=== PATIENT | female | born 1930 | race Caucasian/White ===

== ENCOUNTER → 2017-03-20 | Outpatient (CLI) | payer OTHER, MEDICAID | END | disposition home or self-care (01) | LOC: US 15:29 | PROC: B54DZZZ Ultrasonography of Bilateral Lower Extremity Veins (ICD-10-PCS; principal; 2017-03-20) | PROC: B44HZZZ Ultrasonography of Bilateral Lower Extremity Arteries (ICD-10-PCS; 2017-03-20) | DX: E11.9 Type 2 diabetes mellitus without complications (principal) ==

== ENCOUNTER 2018-10-16 19:34 | Inpatient (IN) | payer OTHER, MEDICAID ==
[~2018-10-16] VITALS: Ht 152.4 cm; Wt 91.3 kg
[2018-10-16 20:10] LABS: BASOPHIL % 0.5 % (0-2); PLATELET COUNT 332 x10^3mcL (130-400); RED CELL DISTRIBUTION WIDTH 13.6 % (11.5-14.5)
[2018-10-16 20:13] LABS: CALCIUM 8.2 mg/dL (8.5-10.1); CARBON DIOXIDE 20.3 mmol/L (21-32); CHLORIDE SERUM 101 mmol/L (98-107); GLUCOSE SERUM 285 mg/dL (74-106); POTASSIUM SERUM 4.5 mmol/L (3.5-5.1); SODIUM SERUM 137 mmol/L (136-145)
--- NOTE | 2018-10-16 20:16 | NUR ---
PT BROUGHT IN BY DAUGHTERS C/O OF POOR APPETITE, N/V AND CONSTIPATION, PT IS AAO X 3 WITH PERIODS OF FORGETFUL, VERBALLY RESPONSIVE, YAKUT SPKEAING, ABD SOFT AND ROUND WITH ACTIVE BS, C/O OF LAST BM WAS 3 DAYS AGO AND WITH C/O OF N&V SINCE THIS MORNING, GENERALIZED WEAKNESS, BASELINE WALKER OR CANE AT HOME, PT WAS ABLE TO AMBULATE FEW STEPS FROM WC TO GURNEY WITHOUT ANY INCIDENT, IV TO RFA 20G, ZOFRAN AND TORADOL GIVEN PER MD ORDER, MSE DONE BY .
[2018-10-16 20:17] LABS: ALKALINE PHOSPHATASE 130 U/L (46-116); ALT/SGPT 273 U/L (14-59); AMYLASE 45 U/L (25-115); AST/SGOT 110 U/L (15-37); LIPASE 248 IU/L (73-393); TOTAL PROTEIN, SERUM 7.8 g/dL (6.4-8.2)
[2018-10-16 20:19] LABS: ALBUMIN 3.1 g/dL (3.4-5.0)
--- NOTE | 2018-10-16 20:38 | NUR ---
PT TO CT ABD/PELVIS VIA GURNEY. FAMILY REMAINS AT BEDSIDE WITH PT.
--- NOTE | 2018-10-16 21:29 | NUR ---
PT RESTING IN BED AND APPEARS COMFORTABLE, NO C/O OF PAIN OR DISCOMFORT AT THIS TIME.
--- NOTE | 2018-10-16 21:53 | NUR ---
PT DENIES ANY URGENCY TO VOID AT THIS TIME, MADE AWARE THAT URINE DIP IS NOT DONE, PER OKAY TO WAIT AT THIS TIME.
--- NOTE | 2018-10-16 22:05 | NUR ---
AT BEDSIDE AND DISCUSSED THE POC.
[2018-10-16] MEDS ORDERED: LIPI20 PO (22:16)
[2018-10-16] MEDS ORDERED: VITAMIN D32000 I2 PO (22:16)
[2018-10-16] MEDS ORDERED: GLU850 PO (22:16)
[2018-10-16] MEDS ORDERED: GOOD SENSE ASPI81 M3 PO (22:17)
[2018-10-16] MEDS ORDERED: AMLODIPINE BESY PO (22:17)
[2018-10-16] MEDS ORDERED: JANUVIA100 M1 PO (22:18)
--- NOTE | 2018-10-16 22:23 | NUR ---
ZOSYN INFUSING AT THIS TIME.
--- NOTE | 2018-10-16 22:52 | NUR ---
REPORT GIVEN TO JUNIOR, ALL QUESTIONS ANSWERED AND CONCERNS ADDRESSED.
--- NOTE | 2018-10-16 22:55 | NUR ---
MADE AWARE OF LACTID ACID 2.6, PER DR EMILY SERRATO TO SEND PT TO [facility].
--- NOTE | 2018-10-16 23:08 | NUR ---
RECEIVED PT FROM ED VIA [facility], CAME IN DUE TO ADBOMINAL PAIN/NAUSEA/VOMITING AND POOR APPETITE X4 DAYS. AAOX3. C/O MILD DIZZINESS. ABLE TO FOLLOW COMMANDS. NO SOB NOTED, LUNG SOUNDS CTA. DENIES CHEST PAIN/PRESSURE, C/O 8/10 EPIGASTRIC PAIN, PT STATED THAT PAIN IS TOLERABLE AT THIS TIME. DENIES NAUSEA/VOMITING. LAST BM WAS YESTERDAY, FORMED STOOLS. VOIDS. CANE AT BEDSIDE. W/ ECCHYMOSIS ON THE LEFT HAND. SIDE RAILS UPX2. CALL LIGHT ON REACH. PT'S DAUGHTER AT BEDSIDE. ENDORSED TO PRIMARY NURSE TIANA FOR CONTINUITY OF CARE
[2018-10-16 23:20] VITALS: BP 146/76
[2018-10-16 23:23] VITALS: Ht 152.4 cm; Wt 91.3 kg
--- NOTE | 2018-10-17 01:27 | NUR ---
PT AWAKE LAYING DOWN IN BED. ASSISSTED PT TO RESTROOM AND BACK TO BED. NO ACUTE DISTRES NOTED. BED AT LOWEST SETTING. SIDE RAILS X2 UP. CALL LIGHT WITHING REACH. WILL CONTINUE TO MONITOR.
--- NOTE | 2018-10-17 02:00 | NUR ---
DR CORONADO MADE AWARE OF PT LACTIC ACID OF 2.6. NO NEW ORDERS RECEIVED. WILL CONTINUE TO MONITOR.
[2018-10-17 05:40] VITALS: BP 139/65
--- NOTE | 2018-10-17 06:20 | NUR ---
PT STAYED AWAKE MOST OF THE NIGHT. BREATHING EVEN AND UNLABORED ON RA. NO ACUTE DISTRESS NOTED. ALL NEEDS ASSESSED AND ATTENDED TO. BED AT LOWEST SETTING. SIDE RAILS X2 UP. CALL LIGHT WITHING REACH. WILL ENDORSE CARE TO AM NURSE.
--- NOTE | 2018-10-17 08:02 | NUR ---
A+OX4, NO RESPRIATORY DISTRESS NOTED, DENIES PAIN, MEDSURG, PULSES MODERATE AND EQUAL HILARIO, NO EDEMA NOTED, LUNG SOUNDS CTA, TOELRATING RA, BOWEL SOUNDS ACTIVE, VOIDING FREELY, GENERALIZED WEAKNESS, L HAND ECCHYMOSIS, IV IN RFA WITH D5NS @ 80 ML/HR, SITE WNL.
[2018-10-17 08:46] LABS: BASOPHIL % 0.5 % (0-2); PLATELET COUNT 302 x10^3mcL (130-400); RED CELL DISTRIBUTION WIDTH 13.4 % (11.5-14.5)
[2018-10-17 08:56] LABS: ALKALINE PHOSPHATASE 110 U/L (46-116); ALT/SGPT 198 U/L (14-59); AST/SGOT 69 U/L (15-37); BILIRUBIN TOTAL 1.19 mg/dL (0.20-1.00); CALCIUM 7.4 mg/dL (8.5-10.1); CARBON DIOXIDE 24.1 mmol/L (21-32); CHLORIDE SERUM 103 mmol/L (98-107); CREATININE SERUM 1.6 mg/dL (0.6-1.0); GLUCOSE SERUM 267 mg/dL (74-106); POTASSIUM SERUM 4.7 mmol/L (3.5-5.1); SODIUM SERUM 137 mmol/L (136-145); TOTAL PROTEIN, SERUM 6.6 g/dL (6.4-8.2)
[2018-10-17 08:58] LABS: ALBUMIN 2.6 g/dL (3.4-5.0)
[2018-10-17 09:24] VITALS: BP 168/78
--- NOTE | 2018-10-17 09:58 | NUR ---
PT RESTING IN BED, NO RESPIRATORY DISTRESS NOTED, DENIES PAIN, CALL LIGHT WITHIN REACH.
--- NOTE | 2018-10-17 10:07 | NUR ---
PT RESTING IN BED, NO RESPIRATORY DISTRESS NOTED, COMPLAINING OF PAIN IN R ARM, R ARM SWOLLEN AND RED AT IV SITE, IV IN RFA REMOVED WITH CATHETER INTACT. R ARM ELEVATED ON PILLOW AND WRAPPED IN WARM BLANKET. STUDENT NURSE AND PROFESSOR TO ATTEMPT IV ACCESS.
--- NOTE | 2018-10-17 10:27 | NUR ---
DR MARIE AT BEDSIDE TO ASSESS PT AND EXPLAIN NEED FOR GALLSTONE REMOVAL SURGERY. PT REFUSED.
--- NOTE | 2018-10-17 10:38 | NUR ---
DR CORONADO NOTIFIED THAT PT REFUSED GALLSTONE SX AND THAT DR MARIE RECOMMENDING ADDITIONAL SURGICAL CONSULT.
--- NOTE | 2018-10-17 10:39 | NUR ---
CALLED AND SPOKE TO AND MADE SAADIA ACOSTA OF 'S RECOMMENDATION OF SURGICAL CONSULT. NEW ORDER RECEIVED OF CONSULT . NARAYAN RN ASSIGNED TO THIS PT MADE AWARE OF ABOVE.
--- NOTE | 2018-10-17 11:00 | NUR ---
NEW IV PLACED BY STUDENT RN AND PROFESSOR IN LFA, BLOOD RETURN PRESENT, FLUSHING WELL.
--- NOTE | 2018-10-17 12:27 | NUR ---
PT RESTING IN BED, NO RESPRIATORY DISTRESS NOTED, DENIES ABD PAIN, DENIES NAUSEA, CALL LIGHT WITHIN REACH.
--- NOTE | 2018-10-17 13:51 | NUR ---
PT RESTING IN BED, NO RESPIRATORY DISTRESS NOTED, DENIES PAIN, DENIES NAUSEA,FAMILY AT BEDSIDE, CALL LIGHT WITHIN REACH.
--- NOTE | 2018-10-17 16:39 | NUR ---
CALLED AND SPOKE TO (SURG CONSULT) TO FOLLOW UP WITH CONSULT PER . GAVE UPDATE OF PT STATUS. NEW ORDER RECEIVED FROM , US GALLBLADDER STAT, PT/PTT AND TYPE&SCREEN STAT. MAY START PT ON CLEAR LIQD DIET SOON ULTRASOUND IS DONE THEN NPO POST MN PER ORDER. NARAYAN ZUNIGA ASSIGNED TO THIS PT MADE AWARE OF ABOVE.
--- NOTE | 2018-10-17 16:54 | NUR ---
DAUGHTER AT BEDSIDE SPOKE TO PT, PT NOW AGREEABLE TO SURGERY. DR CHINCHILLA CALLED BY YARITZA MALLORY AND NOTIFIED. DAUGHTER STATES SHE WILL STAY WITH PT UNTIL DR CHINCHILLA SEES HER @ 9PM.PER DR CHINCHILLA, OKAY FOR PT TO HAVE CLEAR LIQUID DIET AFTER US GALLBLADDER. CALL LIGHT WITHIN REACH.
[2018-10-17 17:23] VITALS: BP 138/84
--- NOTE | 2018-10-17 18:27 | NUR ---
PT SITTING UP IN BED, NO RESPIRATORY DISTRESS NOTED, DENIES PAIN, DENIES NAUSEA, FAMILY ASSISTING PT WITH DINNER, CALL LIGHT WITHIN REACH.
--- NOTE | 2018-10-17 19:21 | NUR ---
ENDORSED CARE TO ASHLEE ZUNIGA.
--- NOTE | 2018-10-17 19:30 | NUR ---
RECEIVED PT FROM AM NURSE. PT AOOX4, ABLE TO MAKE NEEDS KNOWN. PT IS MED-SURG, DENIES CP/PRESSURE AT THIS TIME. PALPABLE PULSES TO ALL EXTREMETIES. SWELLING TO RUE NOTED. LUNG SOUNDS CTA. BREATHING EVEN AND UNLABORED ON RA. NO ACUTE DISTREES NOTED. ABD SOFT AND NONDISTEDED, MILD TENDERNESS TO PALPATION. ACTIVE BS X4 QUAD, LAST BM 10/15. VOIDS FREELY BRP. GENERALIZED WEAKNESS. AMBULATORY WITH ASSIST. ECHYMOSIS TO LEFT HAND, MACARENA. IV TO LFA RUNNING D5 NS AT 80ML/HR. SITE FREE FROM REDNESS AND SWELLING. BED AT LOWEST SETTING. SIDE RAILS X2 UP. CALL LIGHT WITHING REACH. WILL CONTINUE TO MONITOR.
[2018-10-17 20:28] VITALS: BP 125/52
--- NOTE | 2018-10-17 20:36 | NUR ---
DR RODRÍGUEZ CAME TO TALK WITH PATIENT REGARDING SX TO REMOVE GALLBLADDER. EXPLAINED PROCEDURE, PT STATES UNDERSTANDING AND HAS NO QUESTION. PT AGREES TO HAVE THE PROCEDURE DONE TOMORROW. CONSENT WAS SIGNED BY PATIENT IN THE ROOM, , RN AND PT DAUGHTER AT BEDSIDE. WILL CONTINUE TO MONITOR.
--- NOTE | 2018-10-17 21:10 | NUR ---
PT REQUESTING GRETAIEN, STATES SHE HAS HAD NO SLEEP SINCE YESTERDAY AND WANTS TO REST. MEDICATED WITH AMBIEN PRN PER MAR. NO ACUTE DISTRESS NOTED. WILL CONTINUE TO MONITOR.
[2018-10-18 01:01] LABS: microscopic required? NO
[2018-10-18 01:12] LABS: urine erythrocyte NEGATIVE (NEGATIVE)
[2018-10-18 06:07] VITALS: BP 134/64
--- NOTE | 2018-10-18 06:13 | NUR ---
PER DR GARCIA SX WILL BE CANCELLED TODAY. SX WILL BE RESCHEDULE FOR TOMORROW. WILL PUT PT ON LOW FAT DIET AND NPO AFTER MID NIGHT.
--- NOTE | 2018-10-18 06:54 | NUR ---
PT SLEPT AT INTERVALS THROGHOUT THE NIGHT. BREATHING EVEN AND UNLABORED ON RA. INSULIN GIVEN PER SLIDING SCALE. PT MADE AWARE OF CANCELATION OF SX, STATES UNDERSTANDING AND HAS NO QUESTIONS. NO ACUTE DISTRESS NOTED. NO SIGNIFICANT CHANGES DURING SHIFT. ALL NEEDS ASSESSED AND ATTENDED TO. IV TO LFA PATENT AND INTACT. SITE WNL. BED AT LOWEST SETTING. SIDE RAILS X2 UP. CALL LIGHT WITHING REACH. WILL ENDORSE CARE TO AM NURSE.
--- NOTE | 2018-10-18 08:00 | NUR ---
SHIFT ASSESSMENT DONE. PATIENT S/S/OX4. DIVEHI SPEAKING. C/O UPPER ABD PAIN ON 07/15. NORCO WOULD BE GIVEN. OBESITY. AMBULATORY. IVF OF D5NS 80CC/HR. IV SITE TO R HAND INTACT. POOR APPETITE. CALL LIGHT IN REACH.
[2018-10-18 08:47] VITALS: BP 145/67
--- NOTE | 2018-10-18 13:15 | NUR ---
RECEIVED PT FROM EFRAIN NIX. PT IS AAOX4. DENIES PAIN AND SOB AT THIS TIME. IV SITE PATENT AND INTACT. PT NPO AT THIS TIME FOR HIDA SCAN. SIDE RAILS UPX2. CALL LIGHT ON REACH. WILL CONT TO MONITOR.
--- NOTE | 2018-10-18 13:30 | NUR ---
SLEEPING NOW. NO S/S OF PAIN N OW. IVF CONTINUE.ENDORSED CARE TO EFRAIN BRICEÑO.
--- NOTE | 2018-10-18 14:37 | NUR ---
SPOKE TO NUCLEAR MED ABOUT PT'S HIDA SCAN, THE TECH WILL BE COMING IN AT AROUND 1630H-1700H, PT AND PT'S FAMILY MADE AWARE. PT REMAINED TO BE NPO
--- NOTE | 2018-10-18 14:39 | NUR ---
Initial Nutrition Assessment: Anali De Santiago [place] Rm 223A Dx: Choledocholithiasis PMHx: Diabetes, HTN, Chronic Renal Insuff. PSHx: None Labs: Glucos. 267H, BUN 30.0H, Creat. 1.6H, Alb. 2.6L, Ca 7.4L, AST 69H, ALT 198H, Hgb 11.2L, Hct. 34L Meds: Ativan, Humulin, Levaquin, Norvasc Diet: Low fat diet Spoke with EFRAIN Martinez and states was recently changed to NPO pending procedure) PO intake since admission: None documented Ht: 152.4cm, 60in Wt: 91.257kg, 200# BMI: 39.3kg/m2 (Obese I/II) Bed scale: Pt was not sitting in bed IBW: 100#, 45kg %IBW: 200% UBW: 260# Age: 88/F Food Allergies: NKFA Skin:Intact Raffaele: 20 Edema: None GI: Last BM: 10/18/18 PER H&P: 88 yo female h/o dm dyslipidemia ckd presented to the ed with abd pain. this started during the day and progressively worsen throughout the day. she was seen and evluated at the ed, abd u/s revealed gallstones, possible cholecystitis, pancreatidase and cbd stones. she was satrted on an iv antibiotics and was transffered to med surg. RD Note (10/18/18): Pt did not want to talk about diabetes education. Discussed eating low fat foods and nonprocessed foods. Discussed making her own foods at home and eating small portions of food. Went over eating 6 small meals a day. Pt states she is tolerating the low fat diet well here at the hospital. Problem with: N: No V: No D: No C: Yes Problems with: Chewing: None Swallowing: None Current appetite: Fair Recent wt change: None %wt change: None Vitamin/Supplement use: None Special diet at home: Regular Physical activity: None Nutrition education given (specify specific nutrition education and handout given): No handout given. Discussed eating low fat and non greasy foods. Food-drug interactions: Levaquin and : do not take w/minerals due to affecting the absorption, Ativan: limit caffeine to 400-500mg/day. Education given: Yes Estimated Nutritional Needs Based on adjusted body weight (56kg) Energy:9768-7710 kcal/day (25-30kcal/kg for maintenance ) Protein: 56-67g/day (1.0-1.2g/kg for lean body mass ) Fluid:3482-3307 mL/day (1 mL/kcal) or per Nutrition Diagnosis: 1. Inadequate oral intake r/t poor PO intake noted aeb npo needed for a procedure. Intervention 1. Education given on low fat diet. 2. Transition to low fat diet once tolerated Monitor/Evaluate Goal: PO intake at least 75% of estimated needs Monitor: PO intake, Labs, GI function MR F/U 10/21-10/23
--- NOTE | 2018-10-18 14:39 | NUR ---
Intervention 1. Education given on low fat diet. 2. Transition to low fat diet once tolerated
[2018-10-18 16:35] VITALS: BP 141/64
--- NOTE | 2018-10-18 17:03 | NUR ---
PT LTING IN BED, AAOX4. NO C/O PAIN AND SOB. IV SITE PATENT AND INTACT. NEEDS ARE ATTENDED. FAMILY AT BEDSIDE. SIDE RAILS UPX2. CALL LIGHT ON REACH. WILL CONT TO MONITOR
--- NOTE | 2018-10-18 17:59 | NUR ---
NUCLEAR MED TECH AT BEDSIDE FOR HIDA SCAN
--- NOTE | 2018-10-18 18:49 | NUR ---
PT LYING IN BED, AAOX4. NO C/O PAIN AND SOB. IV SITE PATENT AND INTACT. HIDA SCAN ONGOING. CALL LIGHT ON REACH. FAMILY AT BEDSIDE. ENDORSED TO CHARGE NURSE HUMBLE FOR CONTINUITY OF CARE
--- NOTE | 2018-10-18 20:00 | NUR ---
Awake and verbally responsive. No respiratory distress noted on room air. Denies pain. Denies n/v. Ambulating. HIDA scan completed. Pt.will be able to eat dinner. Family assisting pt.at this time. Will be npo after midnight for surgery tomorrow. Patient/family aware. Will cont.to monitor. Call light within reach.
[2018-10-18 20:54] VITALS: BP 153/71
--- NOTE | 2018-10-19 04:49 | NUR ---
Afebrile. No significant change in condition noted. Denies n/v. Denies pain at this time. NPO for planned surgery today. In no apparent distress.
[2018-10-19 05:55] LABS: BASOPHIL % 0.5 % (0-2); PLATELET COUNT 318 x10^3mcL (130-400); RED CELL DISTRIBUTION WIDTH 13.9 % (11.5-14.5)
[2018-10-19 05:59] VITALS: BP 158/71
[2018-10-19 06:24] LABS: CALCIUM 7.6 mg/dL (8.5-10.1); CARBON DIOXIDE 26.1 mmol/L (21-32); CHLORIDE SERUM 107 mmol/L (98-107); CREATININE SERUM 1.1 mg/dL (0.6-1.0); GLUCOSE SERUM 183 mg/dL (74-106); POTASSIUM SERUM 4.1 mmol/L (3.5-5.1); SODIUM SERUM 140 mmol/L (136-145)
--- NOTE | 2018-10-19 07:20 | NUR ---
RECEIVED PT. IN BED A/A/O X3. NO SOB, NO N/V NOTED. PT. DENIES ANY PAIN AT THIS TIME. D5NS RUNNING AT 80 CC/HR VIA IV SITE AT R FA. PT. IS NPO FOR PROCEDURE TODAY. FAMILY AT BEDSIDE. BED IN LOW POS., CALL LIGHT WITHIN REACH. SIDE RAILS UP X3.
[2018-10-19 08:07] VITALS: BP 140/55
--- NOTE | 2018-10-19 10:45 | NUR ---
PT. IS BEING TAKEN TO [facility]. FOR SURGERY.
--- NOTE | 2018-10-19 13:52 | NUR ---
RECEIVED PT. BACK IN ROOM FROM RECOVERY DEPT. ; PT. APPEARS DROWSY. B/P= 133/60 (84), P= 75, R.R.= 16, T= 97.9, O2 SAT.= 97% (WITH O2 AT 4L NC). ABD. INCISIONS WITH DERMABOND X 4 CDI. IV SITE NOTED TO R HAND. FAMILY AT BEDSIDE. WILL CONTINUE TO MONITOR.
[2018-10-19 14:26] VITALS: BP 133/60
[2018-10-19 17:08] VITALS: BP 128/62
--- NOTE | 2018-10-19 18:05 | NUR ---
REMAINS IN STABLE CONDITION AT THIS TIME. WILL CONTINUE TO MONITOR.
--- NOTE | 2018-10-19 18:31 | NUR ---
PT. VOIDED FREELY POST-OP.
--- NOTE | 2018-10-19 19:50 | NUR ---
RECEIVED PATIENT IN BED AWAKE, ALERT AND ORIENTED WITH NO SIGN OF DISTRESS. BREATHING EASY AND NONLABOR SATTING AT 98% RA. DENIES POST OPERATIVE PAIN AT THIS TIME, ABDOMINAL INCISION WITH DERMABOND X4 MACARENA, NO TRACED OF BLOOD NOTED. IV TO RH INTACT AND INFUSING WELL. WILL CONTINUE TO MONITOR. FAMILY MEMBERS AT BEDSIDE. CALL LIGHT WITHIN REACH.
[2018-10-19 21:45] VITALS: BP 136/63
--- NOTE | 2018-10-20 00:09 | NUR ---
ASSISTED TO BATHROOM AND VOIDED, NO C/O POST OP PAIN AT THIS TIME.
--- NOTE | 2018-10-20 03:02 | NUR ---
AWAKE C/O POST OP PAIN, NORCO 1 TAB PO GIVEN PRESCRIBED.
--- NOTE | 2018-10-20 04:01 | NUR ---
RELIEF NOTED PER PATIENT AFTER PAIN MEDS WAS GIVEN.
[2018-10-20 05:04] VITALS: BP 146/50
--- NOTE | 2018-10-20 05:10 | NUR ---
CHECKED AT INTERVALS FOR NEEDS AND SAFETY. C/O POST OPERATIVE PAIN X1 THR ENTIRE SHIFT AND MEDICATED PRESCRIBED. ALL NEEDS ATTENDED.
[2018-10-20 06:34] LABS: ALKALINE PHOSPHATASE 318 U/L (46-116); ALT/SGPT 225 U/L (14-59); AST/SGOT 277 U/L (15-37); BILIRUBIN TOTAL 2.4 mg/dL (0.20-1.00); CARBON DIOXIDE 21.3 mmol/L (21-32); CHLORIDE SERUM 107 mmol/L (98-107); CREATININE SERUM 1.4 mg/dL (0.6-1.0); GLUCOSE SERUM 269 mg/dL (74-106); POTASSIUM SERUM 4.1 mmol/L (3.5-5.1); SODIUM SERUM 139 mmol/L (136-145); TOTAL PROTEIN, SERUM 6.2 g/dL (6.4-8.2)
[2018-10-20 06:35] LABS: ALBUMIN 2.4 g/dL (3.4-5.0)
[2018-10-20 06:42] LABS: BASOPHIL % 0.1 % (0-2); PLATELET COUNT 357 x10^3mcL (130-400); RED CELL DISTRIBUTION WIDTH 13.6 % (11.5-14.5)
--- NOTE | 2018-10-20 07:20 | NUR ---
RECEIVED PT. IN BED SLEEPING. PT. CAN BE AROUSED EASILY. PT. IS ORIENTED X3. NO SOB, NO N/V NOTED. PT. DENIES ANY PAIN AT THIS TIME. D5NS RUNNING AT 80 CC/HR VIA IV SITE AT R HAND. SCD TO BLE MAINTAINED. BED IN LOW POS., CALL LIGHT WITHIN REACH. SIDE RAILS UP X3. FAMILY AT BEDSIDE. ENCOURAGED PT. TO BE UP AND OOB TO AMBULATE TOLERATED.
[2018-10-20 08:35] VITALS: BP 140/62
--- NOTE | 2018-10-20 09:00 | NUR ---
C/O FEELING NAUSEATED. ZOFRAN 4MG IV GIVEN.
[2018-10-20 17:10] VITALS: BP 121/62
--- NOTE | 2018-10-20 18:18 | NUR ---
PT. STATED SHE HAS BEEN PASSING GAS AND BURPING. PT. AMBULATING TO BATHROOM WITH ASSIST. WILL CONTINUE TO MONITOR.
--- NOTE | 2018-10-20 19:20 | NUR ---
RECEIVED PATIENT SITTING IN CHAIR EATING DINNER, FAMILY MEMBERS AT BEDSIDE. NO INDICATION OF POST OP PAIN NOTED THIS TIME. RESPIRATION EVEN AND NONLABOR SATTING AT 94% RA. SURGICAL INCISION TO ABDOMEN WITH DERMABOND X4 INTACT WITH NO TRACE BLOOD NOTED. IV TO RH INTACT AND INFUSING WELL. WILL CONTINUE TO MONITOR. CALL LIGHT WITHIN REACH.
[2018-10-20 21:24] VITALS: BP 140/65
--- NOTE | 2018-10-20 22:19 | NUR ---
IV TO RT HAND INFILTRATED, REINSERTED TO RT WRIST INTACT AND INFUSING WELL.
--- NOTE | 2018-10-20 22:50 | NUR ---
ASSISTED TO BATHROOM AND VOIDED, DENIES POST OP PAIN.
--- NOTE | 2018-10-21 02:15 | NUR ---
APPEAR TO BE SLEEPING THISM TIME NO INDICATION OF PAIN AND DISCOMFORT NOTED.
--- NOTE | 2018-10-21 04:48 | NUR ---
FOR CBC AND CMP TELEPHONE ORDERS FROM DR WILKERSON.
--- NOTE | 2018-10-21 05:05 | NUR ---
CHECKED AT INTERVALS FOR NEEDS AND COMFORT, INSTRUCTION ON NPO GIVEN AND PATIENT VERBALIZED UNDERSTANDING. ALL NEEDS ATTENDED.
[2018-10-21 05:16] VITALS: BP 129/60
[2018-10-21 06:29] LABS: PLATELET COUNT 344 x10^3mcL (130-400); RED CELL DISTRIBUTION WIDTH 13.8 % (11.5-14.5)
[2018-10-21 07:04] LABS: BILIRUBIN DIRECT 1.61 mg/dL (0.0-0.2); BILIRUBIN TOTAL 2.2 mg/dL (0.20-1.00)
[2018-10-21 07:05] LABS: ALBUMIN 2.2 g/dL (3.4-5.0)
--- NOTE | 2018-10-21 07:20 | NUR ---
RECEIVED PATIENT AWAKE/ALERT IN BED CALM AND PLEASANT, DENIES PAIN AT THIS TIME. NO N/V. INFORM PATIENT NOTHING BY MOUTH FOR TEST, PATIENT VERBALIZE UNDERSTAND. NEEDS MET. FAMILY MEMBER REMAIN AT BEDSIDE. CALL LIGHT IN REACH.
[2018-10-21 08:35] LABS: BAND NEUTROPHIL 0 % (0-10); BASOPHIL 0 % (0-2); MONOCYTE 1 % (0-7); SEGMENTED NEUTROPHILS 94 % (37-75)
[2018-10-21 08:36] LABS: ALKALINE PHOSPHATASE 257 U/L (46-116); ALT/SGPT 203 U/L (14-59); AST/SGOT 156 U/L (15-37); BILIRUBIN TOTAL 2.2 mg/dL (0.20-1.00); CALCIUM 7.8 mg/dL (8.5-10.1); CARBON DIOXIDE 19.1 mmol/L (21-32); CHLORIDE SERUM 108 mmol/L (98-107); CREATININE SERUM 1.3 mg/dL (0.6-1.0); GLUCOSE SERUM 166 mg/dL (74-106); SODIUM SERUM 140 mmol/L (136-145); rbc morphology (normal/abnorm) ABNORMAL (NORMAL)
[2018-10-21 08:37] LABS: PLATELET MORPHOLOGY PLATELETS INCREASED
[2018-10-21 08:40] LABS: ALBUMIN 2.2 g/dL (3.4-5.0)
[2018-10-21 09:02] VITALS: BP 130/57
--- NOTE | 2018-10-21 11:50 | NUR ---
PATIENT LAYING IN BED WITH HOB 35 DEGREE, ELAINA RN AT BEDSIDE GIVE PATIENT DM TEACHING. GAVE 4 UNITS REGULAR INSULIN SQ FOR BS 230. UPDATE FAMILY MEMBERS POC. LACTULOSE PO GIVEN. PATIENT REPORT NO PAIN. PASSING GAS, NO BM. NEEDS MET. CONT TO MONITOR.
--- NOTE | 2018-10-21 13:26 | NUR ---
PATIENT IN BED C/O /10 ABD PAIN, NORCO 1 TAB PO GIVEN. ASSISTING UP TO BATHRROM WITH DTR HELP, PATIENT PASSING GAS PAIN DUE TO GAS PAIN. INFORM PATIENT TECH WILL COME UP TO GET PATIENT FOR HIDA SCAN IN 20 MIN. FAMILY MEMBERS REMAIN AT BEDSIDE TO HELP PATIENT BACK TO BED.
--- NOTE | 2018-10-21 13:48 | NUR ---
PATIENT BACK FROM BATHROOM, ASSISTING TO WHEELCHAIR FOR PATIENT GO TO HIDA SCAN. IV HL. PATIENT OFF FLOOR WITH FAMILY MEMBERS FOR TRANSLATION.
--- NOTE | 2018-10-21 15:20 | NUR ---
PATIENT BACK FROM HIDA SCAN, SITTING UP AT SIDE OF BED WITH FAMILY MEMBERS WITH HER, NO PAIN AT THIS TIME. CONNECTED BACK ON IVF, CALL LIGHT WITHIN REACH.
--- NOTE | 2018-10-21 16:25 | NUR ---
CALL DR. MARIE NO ANSWER LEFT MESSAGE FOR DOCTOR TO CALL BACK.
--- NOTE | 2018-10-21 16:38 | NUR ---
PATIENT LAYING IN BED NO COMPLAIN AT THIS TIME, GAVE 2 UNITS REGULAR INSULIN SQ FOR BS 184. SENOKOT PO GIVEN. FAMILY MEMBERS REMAIN AT BEDSIDE, UPDATE WAITING FOR DR. MARIE TO CALL BACK FOR DIET.
--- NOTE | 2018-10-21 16:44 | NUR ---
[facility] HERE FOR PATIENT, IV TO LW REMOVED BY DANISH GUERRERO. CATHETER INTACT, NO S/S OF SWELLING OR INFECTION. GAUZES APPLIED NO BLEEDING NOTED. PATIENT WAITING FOR MOM TO BRING CLOTHES. CALL [facility] TO UPDATE ETA 5-6 PM WILL BE THERE 1-2HRS.
[2018-10-21 16:50] VITALS: BP 121/55
--- NOTE | 2018-10-21 17:42 | NUR ---
PATIENT SLEEPING AT THIS TIME, FAMILY MEMBERS REMAIN AT BEDSIDE. WILL BE BACK TO GIVE MEDS. CALL LIGHT WITHIN REACH.
--- NOTE | 2018-10-21 17:48 | NUR ---
DR. MARIE CALL REPORT HIDA SCAN IS NEGATIVE, NO BOWEL MOVEMENT YET. ORDER FULL LIQUID DIET AND NPO FOR BREAKFAST, LIVER PANEL FOR AM. MAG CITRATE 1 BOTTLE TONIGHT.
--- NOTE | 2018-10-21 18:17 | NUR ---
UPDATE PATIENT'S FAMILY MEMBERS DR. MARIE WILL SEE PATIENT IN THE MORNING AND DISCUSS POC AND INTERVENTION. FULL LIQUID DIET TRAY BROUGHT IN BY FNS SERVICE. PATIENT STILL SLEEPING. CONT TO MONITOR.
--- NOTE | 2018-10-21 19:30 | NUR ---
DR RODRÍGUEZ AT BEDSIDE AND EVAL PT, UPDATES GIVEN AND MD EXPLAINED THE POC WITH FAMILY AND PT.
--- NOTE | 2018-10-21 19:35 | NUR ---
PT SEEN, RESTING IN BED, ALERT AND ORIENTED X 3 WITH MEXICAN SPEAKING, DENIES HEADACHE OR DIZZINESS, BREATHING EVEN AND UNLABORED, LUNG SOUNDS CLEAR, ON ROOM AIR WITH NO RESP DISTRESS NOTED, MEDSURG PT, DENIES CHEST PAIN, PULSES PALPABLE, NO EDEMA NOTED, FULL LIQUID DIET AT THIS TIME, GENERALIZED WEAKNESS, OOB WITH WALKER, ABD DISTENDED BUT SOFT WITH ACTIVE BS, (+) FLATUS AFTER SURGERY BUT NO BM, VOIDING FREELY, 4 INCISIONS LAP SITE TO ABD, KEMALABEBER AND MACARENA, FAMILY AT BEDSIDE, NO DISTRESS NOTED, WILL KEEP TO MONITOR.
--- NOTE | 2018-10-21 20:37 | NUR ---
PT HAD ONE SMALL BROWNISH WATERY STOOL, GOOD ROHINI CARE GIVEN.
[2018-10-21 22:02] VITALS: BP 118/57
[2018-10-22 06:03] VITALS: BP 103/70
--- NOTE | 2018-10-22 06:16 | NUR ---
PT ASLEEP BUT EASILY AROUSABLE, SLEPT ON AND OFF WHOLE NIGHT, NPO AFTER MIDNIGHT, PT HAD TOTAL OF 3 BM THROUGHOUT THE NIGHT, MORNING BLOOD SUGAR-158 MG/DL WITH RISS 3 UNITS, NO DISTRESS NOTED, WILL KEEP TO MONITOR.
--- NOTE | 2018-10-22 07:09 | NUR ---
REPORT GIVEN TO GIORGI-RN, ALL QUESTIONS ANSWERED AND CONCERNS ADDRESSED.
--- NOTE | 2018-10-22 07:15 | NUR ---
RECEIVED PATIENT ASLEEP AWAKEN EASILY, NO C/O PAIN AT THIS TIME. IV TO RW INTACT AND INFUSING WELL. NO S/S OF SWELLING ORVINFECTION NOTED, FAMILY MEMBER REMAIN AT BEDSIDE. REMIND PATIENT NO EATING OR DRINKING UNTIL SEEN BY DR. MARIE. CALL LIGHT WITHIN REACH.
[2018-10-22 07:26] LABS: BASOPHIL % 1.3 % (0-2); PLATELET COUNT 392 x10^3mcL (130-400); RED CELL DISTRIBUTION WIDTH 13.7 % (11.5-14.5)
[2018-10-22 07:35] LABS: BILIRUBIN DIRECT 0.57 mg/dL (0.0-0.2); BILIRUBIN TOTAL 1.05 mg/dL (0.20-1.00)
[2018-10-22 07:47] LABS: ALKALINE PHOSPHATASE 225 U/L (46-116); ALT/SGPT 133 U/L (14-59); AST/SGOT 60 U/L (15-37); BILIRUBIN TOTAL 1.13 mg/dL (0.20-1.00); CALCIUM 7.3 mg/dL (8.5-10.1); CARBON DIOXIDE 22.2 mmol/L (21-32); CHLORIDE SERUM 107 mmol/L (98-107); CREATININE SERUM 1.1 mg/dL (0.6-1.0); GLUCOSE SERUM 184 mg/dL (74-106); SODIUM SERUM 141 mmol/L (136-145)
[2018-10-22 07:52] LABS: ALBUMIN 2.1 g/dL (3.4-5.0); TOTAL PROTEIN, SERUM 6.1 g/dL (6.4-8.2)
[2018-10-22 07:54] LABS: ALBUMIN 2.2 g/dL (3.4-5.0); TOTAL PROTEIN, SERUM 5.7 g/dL (6.4-8.2)
[2018-10-22 08:50] VITALS: BP 147/80
--- NOTE | 2018-10-22 09:41 | NUR ---
PATIENT SAT UP AT SIDE OF BED, DENIES ABD PAIN BUT PER SON PATIENT DOES HAVE ABD PAIN. TYLENOL 2 TABS PO GIVEN. DUE TO FACIAL GRIMACING 07/15. NORVASC PO GIVEN, PATIENT REFUSED SENOKOT REPORT HAS 4 DIARRHEA. UPDATE POC WITH FAMILY MEMBERS. NEEDS MET.
--- NOTE | 2018-10-22 09:45 | NUR ---
DR. CORONADO SEE PATIENT AND UPDATE POC WITH FAMILY MEMBERS, WAITING TO BE SEEN BY DR. MARIE FOR FURTHER INTERVENTION.
--- NOTE | 2018-10-22 11:43 | NUR ---
DR. MARIE SEEN PATIENT AND TALK TO RN [facility] AND MAY DISCHARGE HOME FROM HIS STANDPOINT.
--- NOTE | 2018-10-22 12:26 | NUR ---
PATIENT UP IN BATHROOM IV BEEPING, NOTED HAND SWELLING STOP IV PUMP.IV REMOVED W/ CATHETER INTACT, GAUZES APPLIED. ICE PACK TO SITE AND ELEVATED ON PILLOW. BS 194 GAVE 2 UNITS REGULAR INSULIN SQ TO RT ARM. CONT TO MONITOR.
--- NOTE | 2018-10-22 13:05 | NUR ---
DR. LUCIA SEEN PATIENT AND UPDATE THAT PATIENT IS CLEAR BY DR. MARIE TO GO HOME.
--- NOTE | 2018-10-22 13:23 | NUR ---
CALL DR. CORONADO TO INFORM PATIENT IS CLEAR FOR DISCHARGE FROM DR. MARIE AND DR. RODRÍGUEZ.
--- NOTE | 2018-10-22 13:38 | NUR ---
REPORT GIVEN TO YENIFER TO RESUME CARE.
--- NOTE | 2018-10-22 13:57 | NUR ---
RECEIVED PATIENT FROM GIORGI ZUNIGA AT THIS TIME. PATIENT IS SITTING UP IN CHAIR IN ROOM WITH FAMILY MEMBERS AT BEDSIDE. PATIENT DENIES ANY PAIN OR DISCOMFORT. PATIENT EATING A CCHO DIET FOR LUNCH. POSS D/C HOME TODAY.
[2018-10-22 15:16] VITALS: BP 147/80
--- NOTE | 2018-10-22 15:30 | NUR ---
PATIENT SITTING UP IN CHAIR AT BEDSIDE WITH FAMILY MEMBERS AT BEDSIDE. PATIENT TO D/C HOME THIS AFTERNOON. CONDITION APPEARS STABLE.
--- NOTE | 2018-10-22 15:59 | NUR ---
PATIENT READY FOR D/C HOME. HL HAD ALREADY BEEN DC/D BY GIORGI ZUNIGA EARLIER. DISCAHRGE INSTRUCTIONS GIVEN. EDUCATION PROVIDED. PERSONAL BELONGINGS LIST SIGNED. PATIENT INSTRUCTED ON FOLLOW UP APPTS. ALL INSTRUCTIONS WERE TRANSLATED IN OCCITAN BY OANH SNYDER WHO WAS AT BEDSIDE. FAMILY MEMBERS THERE WELL. CONDITION APPEARS STABLE. NO ACUTE DISTRESS NOTED.
== END 2018-10-22 16:20 | disposition home or self-care (01) | DRG 417 ==
LOC: ED 19:34 → MU 22:04
PROVIDERS: Emergency Medicine; Internal Medicine Gastroenterology; Surgery; ADMIT Internal Medicine
PROC: BF10YZZ Fluoroscopy of Bile Ducts using Other Contrast (ICD-10-PCS; 2018-10-19)
PROC: 0FT44ZZ Resection of Gallbladder, Percutaneous Endoscopic Approach (ICD-10-PCS; principal; 2018-10-19 11:30)
DX: K85.10 Biliary acute pancreatitis without necrosis or infection (principal); N17.0 Acute kidney failure with tubular necrosis; K80.60 Calculus of gallbladder and bile duct with cholecystitis, unspecified, without obstruction; E11.22 Type 2 diabetes mellitus with diabetic chronic kidney disease; I12.9 Hypertensive chronic kidney disease with stage 1 through stage 4 chronic kidney disease, or unspecified chronic kidney disease; E11.65 Type 2 diabetes mellitus with hyperglycemia; E78.5 Hyperlipidemia, unspecified; Z79.82 Long term (current) use of aspirin; Z79.84 Long term (current) use of oral hypoglycemic drugs
CPT/HCPCS: 78226; 82962; 94150; A9537; C1887; G0378; J0330; J1170; J1885; J1956; J2405; J2543; J2704; J2710; J3010; J3490; J7030; J7042; J7120; Q0092; Q9967